=== PATIENT | male | born 1985 | race African-American/Black ===

== ENCOUNTER → 2016-11-22 | Day surgery (SDC) | payer OTHER ==
[~2016-11-22] VITALS: Ht 177.8 cm; Wt 77.6 kg
[~2016-11-22] MED LIST: BALANCED SALT IRRIG OPHTH SOLN 15 ML BOTTLE. ONE; BUPIVACAINE 0.5% 50 ML VIAL. ONE; DEXAMETHASONE SOD PHOS 20 MG/5 ML VIAL. ONE; GABA-586 PO; HYDR-971 PO; HYDROcodone/APAP 5/325MG 1 TAB TABLET PO ONE; HYDROmorphone 2 MG/ML VIAL IV PRN; IBUP-1060 PO; IV RINGERS,LACTATED 1000ML 1,000 ML IV SCH; LIDOCAINE 1% PF 2 ML VIAL. ID PRN; LIDOCAINE 2% PF Vial for OR 5 ML VIAL. ONE; MIDAZOLAM HCL/PF 2 MG/2 ML VIAL. ONE; MORPHINE SULFATE 10 MG/ML VIAL. ONE; MORPHINE SULFATE 2 MG/ML DISP.SYRIN. IV PRN; MORPHINE SULFATE 4 MG/ML DISP.SYRIN. IV PRN; ONDANSETRON PF 4 MG/2 ML VIAL. IV PRN; ONDANSETRON PF 4 MG/2 ML VIAL. ONE; PHENYLEPHRINE in 0.9% NACL PF 1 MG/10 ML DISP.SYRIN. IV ONE; PROCHLORPERAZINE 10 MG/2 ML VIAL. IV PRN; PROPOFOL 20 ML IV ONE; ROCURONIUM 100 MG/10 ML VIAL. ONE; SEVOFLURANE 61 TO 120 MINUTES. IH ONE; SUCCINYLCHOLINE 200 MG/10 ML VIAL. ONE; TRAM50TA PO; [UNRECOGNIZED DRUG - OTHER]; fentaNYL PF VIAL 100 MCG/2 ML VIAL IV PRN; fentaNYL PF VIAL 100 MCG/2 ML VIAL ONE
--- NOTE | 2016-11-22 08:45 | DISCH ---
DISCHARGE INSTRUCTIONS Condition on Discharge Condition on Discharge: Stable Activity After Discharge Activity Instructions for Disc: Other, see below Other activity instructions: may do fine motor use such as eating brushing teeth etc. Lifting Instructions after Dis: No heavy lifting, No pulling or pushing Diet after Discharge Diet after Discharge: Regular Wound Incision Care Wound/Incision Care: Ice to area for comfort, Change dressing Other wound/incision instructi: May change dressing in 3 days keep butterfly strips intact, may shower Contacting the DR. after DC Call your doctor for: Concerns you may have Follow-Up Follow up with: Nimisha 10 days LIS DOSHI MD Nov 22, 2016 08:45
--- NOTE | 2016-11-22 08:57 | PDOC4 ---
Operative Note Operative Note Date of surgery: 11/22/2016 Preoperative diagnosis: Nonunion right clavicle fracture Postoperative diagnosis: Same Procedure: Operative reduction internal fixation midshaft clavicle fracture with plate and screw fixation Surgeon: Nimisha Anesthesia: Gen. endotracheal Estimated blood loss: 25 mL Complications: None Operative indications: Patient is a 31-year-old male that is incarcerated sustained a right clavicle fracture that is displaced and has muscle interposed and hasn't showed no healing in about a month and is quite painful for him. I went over treatment options including additional nonoperative treatment versus possible operative treatment with internal fixation with plate and screws which would generally stay in. There is a surgical risk of infection nerve or blood vessel damage medical or other anesthetic complications. Informed consent was obtained and he agrees to proceed with surgical evaluation and treatment Operative text: Patient was identified procedure verified patient placed in the supine position on the operating table after adequate amounts of general endotracheal anesthesia were administered he was placed in the beachchair position and all bony prominences were well-padded and the right shoulder was prepped and draped in standard sterile fashion. After timeout was performed patient procedure identified and verified, and incision was made over the fracture site on the clavicle subperiosteal dissection was carried out scar tissue was removed fracture was anatomically reduced and a 7-hole Jenni ULS plate was bent to contour and applied with a combination of locking and nonlocking screws with excellent anatomic fixation. Thorough irrigation carried out normal saline solution subcutaneous closure accomplished with buried Vicryl suture subcuticular Monocryl Steri-Strips and Mastisol sterile dressings were applied patient was returned recovery room in stable condition having tolerated procedure well. Janae shepherd was present for prepping draping assisted in retraction and skin closure LIS DOSHI MD Nov 22, 2016 08:57
[2016-11-22] MEDS: fentaNYL PF VIAL 100 MCG/2 ML VIAL IV PRN ×2 (09:22→09:31)
[2016-11-22 10:00] VITALS: BP 143/92
== END | disposition home or self-care (01) ==
LOC: EEVIPCON 05:33 → SURG 05:33 → EDSTATUS 10:20
PROVIDERS: ATTEND Orthopaedic Surgery
DX: S42.021A Displaced fracture of shaft of right clavicle, initial encounter for closed fracture (principal); X58.XXXA Exposure to other specified factors, initial encounter; Y93.89 Activity, other specified; Y92.89 Other specified places as the place of occurrence of the external cause; Y99.8 Other external cause status; Z87.39 Personal history of other diseases of the musculoskeletal system and connective tissue; Z72.89 Other problems related to lifestyle
CPT/HCPCS: 23515; C1713; J0330; J0690; J1100; J2250; J2270; J2370; J2405; J2704; J3010; J3490; J7120; J2001

== ENCOUNTER 2017-07-18 05:35 | Day surgery (SDC) | payer OTHER ==
[2017-07-18] MEDS: IV RINGERS,LACTATED 1000ML 1,000 ML IV (06:11)
[2017-07-18] MEDS ORDERED: fentaNYL PF VIAL 100 MCG/2 ML VIAL IV (07:00)
[2017-07-18] MEDS ORDERED: ONDANSETRON PF 4 MG/2 ML VIAL. IV (07:00)
[2017-07-18] MEDS ORDERED: LIDOCAINE 1% PF 2 ML VIAL. ID (07:00)
[2017-07-18] MEDS ORDERED: LIDOCAINE 2% PF Vial for OR 5 ML VIAL. (07:58)
[2017-07-18] MEDS ORDERED: ONDANSETRON PF 4 MG/2 ML VIAL. (07:58)
[2017-07-18] MEDS ORDERED: PROPOFOL 20 ML IV (07:58)
[2017-07-18] MEDS ORDERED: MIDAZOLAM HCL/PF 2 MG/2 ML VIAL. (07:59)
[2017-07-18] MEDS ORDERED: KETOROLAC 30 MG/ML INJ FOR OR. INJ (07:59)
[2017-07-18] MEDS ORDERED: DEXAMETHASONE SOD PHOS 20 MG/5 ML VIAL. (07:59)
[2017-07-18] MEDS ORDERED: fentaNYL PF VIAL 100 MCG/2 ML VIAL (08:00)
[2017-07-18] MEDS: BUPIVACAINE 0.5% 50 ML VIAL. (08:17)
[2017-07-18] MEDS: methylPREDNISolone ACETATE 80 MG/ML VIAL. (08:18)
[2017-07-18] MEDS: PROCHLORPERAZINE 10 MG/2 ML VIAL. IV (08:54)
[2017-07-18] MEDS: fentaNYL PF VIAL 100 MCG/2 ML VIAL IV ×2 (08:54→09:06)
[2017-07-18] MEDS: MORPHINE SULFATE 4 MG/ML DISP.SYRIN. IV ×4 (08:55→09:47)
[2017-07-18] MEDS ORDERED: HYDROcodone/APAP 5/325MG 1 TAB TABLET (09:18)
[2017-07-18] MEDS: HYDROcodone/APAP 5/325MG 1 TAB TABLET PO (09:25)
== END 2017-07-18 10:15 | disposition home or self-care (01) ==
LOC: SURG 05:35
DX: Z45.89 Encounter for adjustment and management of other implanted devices (principal); M75.51 Bursitis of right shoulder; Z87.891 Personal history of nicotine dependence; Z98.890 Other specified postprocedural states; Z86.19 Personal history of other infectious and parasitic diseases; Z79.899 Other long term (current) drug therapy
CPT/HCPCS: 20610; A7015; J0690; J0780; J1040; J1100; J1885; J2250; J2270; J2405; J2704; J3010; J3490; J7030